=== PATIENT | male | born 1970 | race Caucasian/White ===

== ENCOUNTER 2017-04-18 11:21 | Emergency (ER) | payer MEDICAID ==
[2017-04-18 11:28] VITALS: TEMP 97.7
--- NOTE | 2017-04-18 11:46 | EDPHY ---
H & P Stated Complaint: left arm pain staring thursday, no trauma - Personal History Current Tetanus/Diphtheria Vaccine: Unsure Current Tetanus Diphtheria and Acellular Pertussis (TDAP): Unsure - Medical/Surgical History Hx Asthma: No Hx Chronic Respiratory Disease: No Hx Diabetes: No Hx Cardiac Disease: No Hx Renal Disease: No Hx Cirrhosis: No Hx Alcoholism: No Hx HIV/AIDS: No Hx Splenectomy or Spleen Trauma: No Other PMH: hyperthyroid - Social History Smoking Status: Never smoked Time Seen by Provider: 04/18/17 11:30 HPI/ROS: CHIEF COMPLAINT: Left hand and wrist swelling and pain x4 days HISTORY OF PRESENT ILLNESS: 46-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 Pain reproducible with range of motion and palpation. No discoloration. No fall. No lymphangitic streaking. No axillary pain. No neck pain. No chest pain. No dyspnea. No thromboembolic disorder history. PRIMARY CARE PROVIDER: None REVIEW OF SYSTEMS: A ten point review of systems was performed and is negative with the exception of the items mentioned in the HPI PAST MEDICAL & SURGICAL HISTORY: No pertinent medical or surgical history SOCIAL HISTORY: Nonsmoker no drug use no IV drug use. PHYSICAL EXAM (Prior to examination, patient consented to physical exam, hands were washed and my usual and customary physical exam procedures followed) 1) GENERAL: Well-developed, well-nourished, alert and oriented. Appears to be in no acute distress. 2) HEAD: Normocephalic, atraumatic 3) HEENT: Pupils equal, round, reactive to light bilaterally. Sclera anicteric. 4) NECK: Full range of motion, no meningeal signs. 5) LUNGS: Clear auscultation bilaterally, no wheezes, no rhonchi, no retractions. 6) HEART: Regular rate and rhythm, no murmur, no heave, no gallop. 7) ABDOMEN: No guarding, no rebound, no focal tenderness, negative McBurney's, negative Ahuja's, negative Rovsing's, negative peritoneal sign, 8) MUSCULOSKELETAL: Left upper extremity: Soft tissue swelling to the hand, wrist noted on exam. Normal color and temperature. Brisk capillary refill. Reproducible pain with range of motion of the wrist. Soft compartments. Elbow nontender. Axilla nontender no adenopathy. 9) BACK: No CVA tenderness, no midline vertebral tenderness, no fluctuance, no step-off, no obvious trauma, no visual or palpable abnormality. 10) SKIN: No rash, no petechiae. 11) Psychiatric: Patient is oriented X 3, there is no agitation. DIFFERENTIAL DIAGNOSIS: In no particular include but limited to septic arthritis, gouty arthritis, compartment syndrome, DVT, cellulitis (London Newton) Constitutional: Initial Vital Signs Temperature (C) 36.5 C 04/18/17 11:25 Heart Rate 99 04/18/17 11:25 Respiratory Rate 20 04/18/17 11:25 Blood Pressure 163/105 H 04/18/17 11:25 O2 Sat (%) 95 04/18/17 11:25 O2 Delivery Mode Room Air Allergies/Adverse Reactions: No Known Allergies Allergy (Unverified 04/18/17 11:25) Home Medications: Medication Instructions Recorded Indomethacin [Indocin 25 mg (*)] 50 mg PO TID PRN #60 cap 04/18/17 Medical Decision Making - Diagnostics Imaging Results: Imaging Impressions Extremity Venous Study 04/18/17 11:43 Impression: No evidence of DVT. Findings discussed with London Newton 04/18/2017 at 12:27. ED Course/Re-evaluation: 3:58 p.m.: Patient had been discharged. Gram stain is negative for organisms returned at this time. (London Newton) Differential Diagnosis: Differential diagnosis considered includes DVT, septic arthritis, arterial thrombosis, gouty arthritis, myofascial strain (Adalid Yates) Other Provider: Independent physician evaluation: I evaluated and participated in the management of the patient. I also evaluated the patient independently. My co-signature indicates that I have reviewed this chart and I agree with the findings and plan of care as documented. My personal H&P findings include: The patient presents to the ED for evaluation of 4 days of left wrist pain and swelling. The patient denies prior history of gout or inflammatory arthritis. Physical exam: General Appearance: Alert, no distress Eyes: Pupils equal and round no pallor or injection ENT, Mouth: Mucous membranes moist Respiratory: There are no retractions, lungs are clear to auscultation Cardiovascular: Regular rate and rhythm Gastrointestinal: Abdomen is soft and nontender, no masses, bowel sounds normal Neurological: A&O, normal motor function, normal sensory exam, normal cranial nerves Skin: Warm and dry, no rashes Musculoskeletal: Neck is supple nontender Extremities: Erythema and swelling noted to the left wrist ED course: Patient presents to the ED for evaluation of an inflammatory arthritis to the left wrist. I did perform an arthrocentesis on the patient without complication. The patient will be evaluated for septic arthritis versus gout dispositioned accordingly. Procedure: Arthrocentesis. Indication: Evaluation for the possibility of septic joint. Risks, benefits, alternatives of the procedure were discussed with the patient and consent obtained. The patient was prepped and draped in the usual sterile fashion over the left wrists joint. Local anesthesia was provided with 1% lidocaine. The joint space was entered with a 18 gauge gauge needle and 2 ml of turbid fluid was obtained. There were no complications. The procedure was performed by myself, Dr. Adalid Yates. Update at 2:00 p.m.: Preliminary fluid analysis does demonstrate crystals consistent with gouty arthritis. Final reviewed by pathology pending. Plan: Patient will be discharged home with indomethacin. He is advised to return to the ED for markedly worsening pain or swelling. (Adalid Yates) - Data Points Laboratory Results: 04/18/17 13:05 Fl Pathologist Review Fiorella MOORE MD Synovial Source SYNOVIAL Synovial Color RED (CLS/PALE YL) Synovial Appearance CLOUDY H (CLEAR) Synovial WBC 20439 /mm3 H /mm3 (0-150) Synovial RBC 38674 /mm3 H /mm3 (0-0) Synovial Neutrophils 88 % H % (0-25) Synovial Lymphocytes 9 % % Synov Monos/Macrophage 3 % % Synovial Crystals COMMENT H (NONE SEEN) Synovial Glucose 84 mg/dL mg/dL (55-113) Microbiology Results: MICROBIOLOGY 04/18/17 13:00 Wrist - Aspirate Gram Stain - Final Medications Given: Discontinued Medications Ketorolac Tromethamine (Toradol) 30 mg IVP EDNOW ONE Stop: 04/18/17 14:09 Last Admin: 04/18/17 14:28 Dose: 30 mg Departure - Departure Disposition: Home, Routine, Self-Care Clinical Impression: Gout Condition: Good Instructions: Gout (ED) Additional Instructions: 1. Indomethacin as prescribed. 2. Please schedule a follow-up appointment with primary care to discuss long- term control strategies for gout. You have been given the telephone number for Dr. Lira our on-call primary care provider. He would be happy to see you in follow-up. 3. Please return to the ED for markedly worsening pain, swelling, redness or fever Referrals: Gomez Lira MD [[facility] [place] Primary Care Provider] - As per Instructions Prescriptions: Indomethacin [Indocin 25 mg (*)] 50 mg PO TID PRN #60 cap PRN Reason: for pain
[2017-04-18] MEDS ORDERED: KETOROLAC 30 MG/1 ML SDV IVP ONE (14:08)
[2017-04-18 14:33] VITALS: BP 169/117; PULSE 89; RESP 18; O2SAT 96
== END 2017-04-18 14:32 | disposition home or self-care (01) ==
PROC: 0R9P3ZZ Drainage of Left Wrist Joint, Percutaneous Approach (ICD-10-PCS; principal; 2017-04-18)
DX: M10.9 Gout, unspecified (principal)
CPT/HCPCS: 96374; J1885